=== PATIENT | female | born 1995 | race Caucasian/White ===

== ENCOUNTER 2017-04-19 10:04 | Emergency (ER) | payer BC, OTHER ==
[~2017-04-19] VITALS: Ht 172.7 cm; Wt 71.5 kg
[~2017-04-19 10:04] MED LIST: CEPH500C2 PO; ETONMIS VAGRING; IBUP-1050 PO
[2017-04-19 10:11] VITALS: TEMP 36.8; Ht 172.7 cm; Wt 71.5 kg
[2017-04-19] MEDS ORDERED: RABIES VACCINE (IMOVAX) HUMAN DIPL CELL 2.5 INTER.UNIT/ML SYR IM. ONE (10:30)
--- NOTE | 2017-04-19 10:32 | EMERGENCY ROOM VISIT NOTE ---
ED Visit Note First contact with patient: 10:14 CHIEF COMPLAINT: Need rabies vaccine HISTORY OF PRESENT ILLNESS: This 21-year-old female presents the ER stating she needs the rabies vaccine. She is entering that school and was told by the Department of Health as well as her family doctor to come here for the rabies vaccine. REVIEW OF SYSTEMS: 6 system review was performed and was negative unless stated otherwise in history of present illness. PMH: The patient is healthy; there is no significant medical or surgical history. SOCIAL HISTORY: Patient lives with her boyfriend. The patient denies tobacco use but admits to occasional alcohol use. PHYSICAL EXAM: Vital Signs: Were reviewed Reviewed Nurse's notes. GEN.: 21-year -old female appears in no acute distress. MENTAL Status: Alert and oriented 3. EMERGENCY DEPARTMENT COURSE: She was evaluated. I called the rabies vaccine treatment line and was instructed that the patient will need Imovax at the pre- exposure intervals. The patient was given Imovax IM. The patient did not have any reaction. The patient was discharged home in stable condition. DIAGNOSIS: 3 exposure rabies prophylaxis DISCHARGE INSTRUCTIONS: Have the next vaccine injections on day 7 and on day 21. Today would be day 0. Problem List Medical Problems: (1) No active medical problems Status: Chronic Current/Historical Medications Scheduled Cephalexin Monohydrate (Keflex), 500 MG PO QID Etonogestrel/Ethinyl Estradiol (Nuvaring), 1 EA VAGRING MONTHLY Scheduled PRN Ibuprofen (Advil), 200-600 MG PO Q4H PRN for Pain Allergies Coded Allergies: Amoxicillin (Verified Allergy, Unknown, UNKN, 08/26/16) Clavulanic Acid (Verified Allergy, Unknown, UNKN, 08/26/16) Vital Signs Date Time Temp Pulse Resp B/P (MAP) Pulse Ox O2 Delivery O2 Flow Rate FiO2 04/19/17 10:11 36.8 82 20 132/91 95 Room Air Departure Information Referrals Cecile Lee D.O. (PCP) Patient Instructions [facility]
[2017-04-19 11:05] VITALS: BP 110/70; PULSE 70; O2SAT 100
== END 2017-04-19 11:07 | disposition home or self-care (01) ==
LOC: C.EDB 10:06 → C.EDC 11:07
DX: Z23 Encounter for immunization (principal)

== ENCOUNTER 2017-04-26 07:26 | Emergency (ER) | payer OTHER ==
[~2017-04-26] VITALS: Ht 172.7 cm; Wt 69.2 kg
[~2017-04-26 07:26] MED LIST changes: -CEPH500C2 PO; -IBUP-1050 PO
[2017-04-26 07:31] VITALS: TEMP 37.1; Ht 172.7 cm; Wt 69.2 kg
[2017-04-26] MEDS ORDERED: RABIES VACCINE (IMOVAX) HUMAN DIPL CELL 2.5 INTER.UNIT/ML SYR IM. ONE (07:45)
--- NOTE | 2017-04-26 07:46 | EMERGENCY ROOM VISIT NOTE ---
ED Visit Note First contact with patient: 07:38 CHIEF COMPLAINT: Rabies shot #2 HISTORY OF PRESENT ILLNESS: Patient is a healthy 8-year-old white female who returns to the emergency as advised for her second preexposure rabies prophylaxis vaccine. 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 She received her first injection last Saturday without any problem. REVIEW OF SYSTEMS: Review of systems as per HPI. All other systems reviewed were negative. At least 3 systems reviewed. PMH: Electronic medical records are reviewed and summarized as above/below. See Problem List. SOCIAL HISTORY: Patient lives at home with her boyfriend. She is a student. PHYSICAL EXAM: Vital Signs: Reviewed Nurse's notes. HEAD: Atraumatic, without temporal or scalp tenderness. EYES: PERRL, EOMI, no discharge or injection. SKIN: Normal. NEUROLOGICAL: Alert and cooperative. Sensory and motor functions grossly intact. EMERGENCY DEPARTMENT COURSE: The patient was given Imovax, observed and discharged. She will return to the emergency Department in 2 weeks for final vaccine. Medication reconciliation: I attest that I have personally reviewed the patient' s current medication list. Problem List Medical Problems: (1) Back pain Status: Resolved (2) Dental abscess Status: Resolved (3) Facial cellulitis Status: Resolved (4) Facial swelling Status: Resolved (5) Left hip pain Status: Resolved (6) No active medical problems Status: Resolved Current/Historical Medications Scheduled Etonogestrel/Ethinyl Estradiol (Nuvaring), 1 EA VAGRING MONTHLY Allergies Coded Allergies: Amoxicillin (Verified Allergy, Unknown, UNKN, 04/26/17) Clavulanic Acid (Verified Allergy, Unknown, UNKN, 04/26/17) Vital Signs Date Time Temp Pulse Resp B/P (MAP) Pulse Ox O2 Delivery O2 Flow Rate FiO2 04/26/17 08:13 80 16 106/67 98 04/26/17 07:31 37.1 70 18 113/76 96 Room Air Medications Administered Medications (Trade) Dose Ordered Sig/Tommie Route Start Time Stop Time Status Last Admin Dose Admin Rabies Vaccine Human Diploid Cell (Imovax Rabies) 2.5 interunit ONCE ONCE IM. 04/26/17 07:45 04/26/17 07:46 DC 04/26/17 07:54 2.5 INTERUNIT Departure Information Impression Primary Impression: Need for prophylactic vaccination against rabies Referrals Cecile Lee D.O. (PCP) Patient Instructions [facility]
[2017-04-26 08:13] VITALS: BP 106/67; PULSE 80; O2SAT 98
== END 2017-04-26 08:14 | disposition home or self-care (01) ==
LOC: C.EDB 07:27
DX: Z23 Encounter for immunization (principal)

== ENCOUNTER 2017-05-10 10:58 | Emergency (ER) | payer OTHER ==
[~2017-05-10] VITALS: Ht 172.7 cm; Wt 69.8 kg
[2017-05-10 11:01] VITALS: Ht 172.7 cm; Wt 69.8 kg
[2017-05-10] MEDS ORDERED: RABIES VACCINE (IMOVAX) HUMAN DIPL CELL 2.5 INTER.UNIT/ML SYR IM. ONE (11:30)
--- NOTE | 2017-05-10 11:38 | EMERGENCY ROOM VISIT NOTE ---
ED Visit Note First contact with patient: 11:06 CHIEF COMPLAINT: Rabies shot #2 HISTORY OF PRESENT ILLNESS: Patient is a healthy 21-year-old white female who returns to the emergency as advised for her third preexposure rabies prophylaxis vaccine. 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 She received her prior injections here without any problem. REVIEW OF SYSTEMS: Review of systems as per HPI. All other systems reviewed were negative. At least 3 systems reviewed. PMH: Electronic medical records are reviewed and summarized as above/below. See Problem List. SOCIAL HISTORY: Patient lives at home with her boyfriend. She is a student. PHYSICAL EXAM: Vital Signs: Reviewed Nurse's notes. HEAD: Atraumatic, without temporal or scalp tenderness. EYES: PERRL, EOMI, no discharge or injection. SKIN: Normal. NEUROLOGICAL: Alert and cooperative. Sensory and motor functions grossly intact. EMERGENCY DEPARTMENT COURSE: The patient was given Imovax, observed and discharged. She will return to the emergency Department as needed. Medication reconciliation: I attest that I have personally reviewed the patient' s current medication list. Blood pressure screening : Patient was found to have normal blood pressure on screening and does not require follow-up. Problem List Medical Problems: (1) Back pain Status: Resolved (2) Dental abscess Status: Resolved (3) Facial cellulitis Status: Resolved (4) Facial swelling Status: Resolved (5) Left hip pain Status: Resolved (6) No active medical problems Status: Resolved Current/Historical Medications Scheduled Etonogestrel/Ethinyl Estradiol (Nuvaring), 1 EA VAGRING MONTHLY Allergies Coded Allergies: Amoxicillin (Verified Allergy, Unknown, UNKN, 04/26/17) Clavulanic Acid (Verified Allergy, Unknown, UNKN, 04/26/17) Vital Signs Date Time Temp Pulse Resp B/P (MAP) Pulse Ox O2 Delivery O2 Flow Rate FiO2 05/10/17 11:52 36.8 68 16 129/68 96 05/10/17 11:01 36.8 70 16 129/68 95 Room Air Medications Administered Medications (Trade) Dose Ordered Sig/Tommie Route Start Time Stop Time Status Last Admin Dose Admin Rabies Vaccine Human Diploid Cell (Imovax Rabies) 2.5 interunit ONCE ONCE IM. 05/10/17 11:30 05/10/17 11:31 DC 05/10/17 11:24 2.5 INTERUNIT Departure Information Impression Primary Impression: Need for prophylactic vaccination against rabies Referrals Cecile Lee D.O. (PCP) Patient Instructions [facility] Additional Instructions Return to the ED as needed.
[2017-05-10 11:52] VITALS: BP 129/68; PULSE 68; TEMP 36.8; O2SAT 96
== END 2017-05-10 11:45 | disposition home or self-care (01) ==
LOC: C.EDB 10:59 → C.EDD 11:45
DX: Z23 Encounter for immunization (principal); Z20.3 Contact with and (suspected) exposure to rabies

== ENCOUNTER 2017-05-17 12:54 | Emergency (ER) | payer OTHER ==
[~2017-05-17] VITALS: Ht 175.3 cm; Wt 70.4 kg
[2017-05-17 12:58] VITALS: BP 116/75; PULSE 87; TEMP 36.6; O2SAT 100; Ht 175.3 cm; Wt 70.4 kg
--- NOTE | 2017-05-17 13:18 | EMERGENCY ROOM VISIT NOTE ---
ED Visit Note First contact with patient: 13:02 CHIEF COMPLAINT: Right fifth finger laceration HISTORY OF PRESENT ILLNESS: This 21-year-old female presents the ER with chief complaint of a small laceration on her right fifth finger which occurred on Saturday while she was at work. The patient states that since that time it bleeds intermittently. The patient denies being on any blood thinners or having any bleeding disorders. REVIEW OF SYSTEMS: 6 system review was performed and was negative unless stated otherwise in history of present illness. PMH: The patient is healthy; there is no significant medical or surgical history. SOCIAL HISTORY: Patient lives with her boyfriend. The patient denies tobacco use but admits to occasional alcohol use. PHYSICAL EXAM: Vital Signs: Were reviewed Reviewed Nurse's notes. GEN.: 21-year -old white female appears in no acute distress. MENTAL Status: Alert and oriented 3. RIGHT FIFTH FINGER: On the dorsal distal phalanx there is a small 1 cm cut with a skin flap involved. The skin flap is dangling loosely. There is no active bleeding at this time. The wound looks clean. EMERGENCY DEPARTMENT COURSE: The patient was evaluated. The small skin flap was cut off. A new Band-Aid was applied.. DIAGNOSIS: Small 1 cm cut right fifth finger DISCHARGE INSTRUCTIONS & TREATMENT: Keep the wound covered if there is any chance of getting dirty into the scabbed over. If bleeding reoccurs just apply pressure to stop the bleeding. Problem List Medical Problems: (1) Back pain Status: Resolved (2) Dental abscess Status: Resolved (3) Facial cellulitis Status: Resolved (4) Facial swelling Status: Resolved (5) Left hip pain Status: Resolved (6) No active medical problems Status: Resolved Current/Historical Medications Scheduled Etonogestrel/Ethinyl Estradiol (Nuvaring), 1 EA VAGRING MONTHLY Allergies Coded Allergies: Amoxicillin (Verified Allergy, Unknown, UNKN, 05/17/17) Clavulanic Acid (Verified Allergy, Unknown, UNKN, 05/17/17) Vital Signs Date Time Temp Pulse Resp B/P (MAP) Pulse Ox O2 Delivery O2 Flow Rate FiO2 05/17/17 12:58 36.6 87 18 116/75 100 Room Air Departure Information Referrals Cecile Lee D.O. (PCP) [facility]
== END 2017-05-17 13:30 | disposition home or self-care (01) ==
LOC: C.EDB 12:56 → C.EDD 13:30
DX: S61.216A Laceration without foreign body of right little finger without damage to nail, initial encounter (principal); X58.XXXA Exposure to other specified factors, initial encounter; Y92.89 Other specified places as the place of occurrence of the external cause; Y99.0 Civilian activity done for income or pay; Z86.19 Personal history of other infectious and parasitic diseases; Z88.1 Allergy status to other antibiotic agents; Z88.8 Allergy status to other drugs, medicaments and biological substances